=== PATIENT | male | born 1970 | race Caucasian/White ===

== ENCOUNTER 2018-01-07 17:13 | Emergency (ER) | payer OTHER, SELFPAY ==
[~2018-01-07 17:13] MED LIST: Sodium Chloride 0.9% 1,000 ML BAG ONE; Sodium Chloride 0.9% 100 ML BAG ONE
[2018-01-07] MEDS ORDERED: Acetaminophen 500 MG TAB ONE (17:28)
[2018-01-07 17:54] LABS: Bilirubin Small (Negative); Blood, Urine Large (Negative); Glucose, Urine (Dipstick) Negative (Negative); Leukocyte Small (Negative); Nitrite Negative (Negative); Protein, Urine (Dipstick) 100 mg/dL (Neg-Trace); Specific Gravity, Urine 1.025 (1.005-1.030); Urobilinogen > or = 8.0 mg/dL (0.2-1.0)
[2018-01-07 17:58] LABS: #Basophils 0.1 thou/uL (0.0-0.2); #Eosinphils 0.1 thou/uL (0.0-0.7); #Lymphocytes 1.7 thou/uL (1.20-3.40); #Monocytes 1.5 thou/uL (0.11-0.59); #Neutrophils 16.5 thou/uL (1.40-6.50); %Basophils 0.7 % (0.0-1.0); %Eosinophils 0.3 % (0.0-10.0); %Lymphocytes 8.6 % (21.0-51.0); %Monocytes 7.6 % (0.0-10.0); %Neutrophils 82.9 % (42.0-75.0); Hemoglobin 15.2 g/dL (14.0-18.0); Mean Corpuscular HGB CONC 34.9 g/dL (32.0-36.0); Mean Corpuscular Hemoglobin 29.7 pg (27.0-31.0); Mean Platelet Volume 5.8 fL (7.4-10.4); Platelet Count 242 thou/uL (130-400); RBC Distribution Width 11.3 % (11.5-14.5); Red Blood Cell (RBC) Count 5.13 mill/uL (4.70-6.10); White Blood Cell (WBC) Count 19.9 thou/uL (4.8-10.8)
[2018-01-07 17:58] LABS: Clarity Hazy (Clear)
--- NOTE | 2018-01-07 17:59 | RAD ---
CHEST TWO VIEWS: 01/07/18 HISTORY: Fever. Cough. FINDINGS: No comparison. The cardiac silhouette is unremarkable. The pulmonary vasculature upper limits of normal. Mediastinum is midline. No lobar consolidation, or evidence of pneumothorax. No pleural fluid. IMPRESSION: No active cardiopulmonary abnormalities are demonstrated. POS: [facility]
[2018-01-07 18:08] LABS: RBC/HPF 21-50 HPF (0-3); Squamous Epithelial 0-3 HPF (0-3)
[2018-01-07 18:09] LABS: Bacteria/HPF 1+ HPF (None Seen)
[2018-01-07 18:12] LABS: ALT (SGPT) 94 U/L (8-55); AST (SGOT) 37 U/L (5-34); Albumin 4.4 g/dL (3.5-5.0); Alkaline Phosphatase 107 U/L (40-150); Anion Gap 17 mmol/L (10-20); BUN (Urea Nitrogen) 21 mg/dL (8.9-20.6); Bilirubin, Total 1.7 mg/dL (0.2-1.2); Calc. Creatinine Clearance 0 mL/min (70-130); Calcium 9.5 mg/dL (7.8-10.44); Carbon Dioxide 22 mmol/L (22-29); Chloride 103 mmol/L (98-107); Estimated GFR-MDRD 66; Globulin 3.2 g/dL (2.4-3.5); Glucose 151 mg/dL (70-105); Protein, Total 7.6 g/dL (6.0-8.3); Sodium 138 mmol/L (136-145)
[2018-01-07 18:15] LABS: CKMB 0.5 ng/mL (0-6.6); Troponin I 0.013 ng/mL (< 0.028)
[2018-01-07] MEDS ORDERED: Piperacillin/Tazobactam 3.375 GM VIAL ONE (18:15)
--- NOTE | 2018-01-07 19:00 | CT ---
CT ABDOMEN AND PELVIS WITH AND WITHOUT IV CONTRAST: 01/07/18 HISTORY: Fever. Abdomen pain. Each renal collecting system, ureter, and the urinary bladder are decompressed without stone evident. The liver diffusely hypodense. Small dystrophic calcification at the at the falciform ligament. No abnormal areas of contrast enhancement. No retroperitoneal adenopathy, free fluid, or free air. Lack of oral contrast limits evaluation of the bowel. No evidence of obstruction. IMPRESSION: Hepatic steatosis. No acute abnormalities are demonstrated. POS: [facility]
== END 2018-01-07 19:32 | disposition short-term general hospital (02) ==
LOC: MADERS 17:13
DX: N41.9 Inflammatory disease of prostate, unspecified (principal)
CPT/HCPCS: 36415; 71046; 74178; 80053; 81003; 81015; 82553; 83605; 84484; 85025; 87040; 87077; 87086; 87186; 94760; 96361; 96365; 96375; J2543; J3370; J7050

== ENCOUNTER 2024-05-14 07:40 | Emergency (ER) | payer SELFPAY ==
[2024-05-14] MEDS ORDERED: Lidocaine 1% w/Epinephrine 1:100K 20 ML VIAL ONE (08:07)
[2024-05-14] MEDS ORDERED: Bupivacaine PF 0.5% 30 ML VIAL ONE (08:08)
== END 2024-05-14 08:42 | disposition home or self-care (01) ==
LOC: MADERS 07:40
DX: S29.012A Strain of muscle and tendon of back wall of thorax, initial encounter (principal); M79.2 Neuralgia and neuritis, unspecified; X58.XXXA Exposure to other specified factors, initial encounter
CPT/HCPCS: 20552; 96372; J0665

== ENCOUNTER 2024-05-26 20:21 | Emergency (ER) | payer SELFPAY ==
[2024-05-26] MEDS ORDERED: Ketorolac Tromethamine 30 MG (1 mL) VIAL ONE (20:57)
[2024-05-26] MEDS ORDERED: Diazepam 5 MG TAB ONE (20:57)
== END 2024-05-26 22:06 | disposition home or self-care (01) ==
LOC: MADERS 20:21
DX: M54.12 Radiculopathy, cervical region (principal)
CPT/HCPCS: 96372; 99283; J1885

== ENCOUNTER 2024-05-31 13:34 | Emergency (ER) | payer OTHER, SELFPAY ==
[2024-05-31] MEDS ORDERED: Ondansetron ODT 4 MG TAB ONE (14:23)
[2024-05-31] MEDS ORDERED: Morphine 4 MG/ML VIAL ONE (14:23)
== END 2024-05-31 14:42 | disposition home or self-care (01) ==
LOC: MADERS 13:34
DX: M54.12 Radiculopathy, cervical region (principal)
CPT/HCPCS: 96372; 99283; J2272; Q0162

== ENCOUNTER 2024-06-20 21:38 | Emergency (ER) | payer OTHER, SELFPAY ==
[2024-06-20] MEDS ORDERED: Gabapentin 100 MG CAP ONE (22:27)
[2024-06-20] MEDS ORDERED: Ketorolac Tromethamine 30 MG (1 mL) VIAL ONE (22:27)
[2024-06-20] MEDS ORDERED: Acetaminophen 500 MG TAB ONE (22:27)
[2024-06-20] MEDS ORDERED: Morphine 4 MG/ML VIAL ONE (22:27)
[2024-06-20] MEDS ORDERED: Metoprolol Tartrate 5 MG (5 mL) VIAL ONE (22:28)
[2024-06-20 22:55] LABS: #Basophils 0.1 thou/uL (0.0-0.2); #Eosinophils 0.5 thou/uL (0.0-0.7); #Lymphocytes 4.2 thou/uL (1.20-3.40); #Monocytes 0.8 thou/uL (0.11-0.59); #Neutrophils 5.7 thou/uL (1.40-6.50); %Eosinophils 4.4 % (0.0-10.0); %Lymphocytes 37.3 % (21.0-51.0); %Monocytes 7.3 % (0.0-10.0); %Neutrophils 50.1 % (42.0-75.0); Hematocrit 47.3 % (42.0-52.0); Hemoglobin 15.4 g/dL (14.0-18.0); Mean Corpuscular HGB CONC 32.5 g/dL (32.0-36.0); Mean Corpuscular Hemoglobin 28.9 pg (27.0-31.0); Platelet Count 320 10x3/uL (130-400); RBC Distribution Width 11.3 % (11.5-14.5); Red Blood Cell (RBC) Count 5.32 mill/uL (4.70-6.10); White Blood Cell (WBC) Count 11.3 10x3/uL (4.8-10.8)
[2024-06-20 23:13] LABS: Anion Gap 19 mmol/L (10-20); BUN (Urea Nitrogen) 21 mg/dL (8.4-25.7); Calc. Creatinine Clearance 0 mL/min (70-130); Calcium 9.6 mg/dL (7.8-10.44); Carbon Dioxide 21 mmol/L (22-29); Chloride 105 mmol/L (98-107); Estimated GFR 99; Glucose 118 mg/dL (70-105); Potassium 4.1 mmol/L (3.5-5.1); Sodium 141 mmol/L (136-145)
[2024-06-20 23:16] LABS: Troponin I Less than 0.010 ng/mL (< 0.028)
== END 2024-06-20 23:55 | disposition home or self-care (01) ==
LOC: MADERS 21:38
DX: M54.12 Radiculopathy, cervical region (principal)
CPT/HCPCS: 80048; 84484; 85025; 93005; 96374; 96375; J1885; J2270

== ENCOUNTER 2024-07-04 21:33 | Emergency (ER) | payer OTHER, SELFPAY ==
[2024-07-04] MEDS ORDERED: Dexamethasone 10 MG/ML VIAL ONE (22:09)
[2024-07-04] MEDS ORDERED: Morphine 10 MG/ML VIAL ONE (22:10)
== END 2024-07-04 22:53 | disposition home or self-care (01) ==
LOC: MADERS 21:33
DX: M54.12 Radiculopathy, cervical region (principal)
CPT/HCPCS: 96372; 99282; J1100; J2270